=== PATIENT | male | born 1940 | race Caucasian/White ===

== ENCOUNTER 2018-01-23 06:57 | Outpatient (CLI) | payer OTHER ==
[~2018-01-23 06:57] MED LIST: AMOX1TAB12 PO; FLONASE16 GM NS; MEDROL4 MG PO
== END 2018-01-23 07:10 | disposition home or self-care (01) ==
LOC: LAB 06:57
DX: D51.0 Vitamin B12 deficiency anemia due to intrinsic factor deficiency (principal); D51.1 Vitamin B12 deficiency anemia due to selective vitamin B12 malabsorption with proteinuria; D51.3 Other dietary vitamin B12 deficiency anemia; D50.8 Other iron deficiency anemias; D51.8 Other vitamin B12 deficiency anemias; B96.81 Helicobacter pylori [H. pylori] as the cause of diseases classified elsewhere; K31.83 Achlorhydria; K29.40 Chronic atrophic gastritis without bleeding; K90.89 Other intestinal malabsorption; E06.3 Autoimmune thyroiditis; E03.8 Other specified hypothyroidism; E55.9 Vitamin D deficiency, unspecified; E78.5 Hyperlipidemia, unspecified; I10 Essential (primary) hypertension

== ENCOUNTER 2018-06-02 07:03 | Outpatient (CLI) | payer OTHER | END 2018-06-02 07:17 | disposition home or self-care (01) | LOC: LAB 07:03 | DX: D51.0 Vitamin B12 deficiency anemia due to intrinsic factor deficiency (principal); E03.8 Other specified hypothyroidism; K90.89 Other intestinal malabsorption; E55.9 Vitamin D deficiency, unspecified; D51.1 Vitamin B12 deficiency anemia due to selective vitamin B12 malabsorption with proteinuria; D51.3 Other dietary vitamin B12 deficiency anemia; B96.81 Helicobacter pylori [H. pylori] as the cause of diseases classified elsewhere; K31.83 Achlorhydria; E06.3 Autoimmune thyroiditis; K29.40 Chronic atrophic gastritis without bleeding; I10 Essential (primary) hypertension; E78.4 Other hyperlipidemia; D50.8 Other iron deficiency anemias; D51.8 Other vitamin B12 deficiency anemias; C90.00 Multiple myeloma not having achieved remission; D47.2 Monoclonal gammopathy ==

== ENCOUNTER 2019-01-25 07:05 | Outpatient (CLI) | payer OTHER | END 2019-01-25 07:10 | disposition home or self-care (01) | LOC: LAB 07:05 | DX: D51.0 Vitamin B12 deficiency anemia due to intrinsic factor deficiency (principal); D51.1 Vitamin B12 deficiency anemia due to selective vitamin B12 malabsorption with proteinuria; D51.3 Other dietary vitamin B12 deficiency anemia; B96.81 Helicobacter pylori [H. pylori] as the cause of diseases classified elsewhere; K31.83 Achlorhydria; E06.3 Autoimmune thyroiditis; E03.8 Other specified hypothyroidism; E55.9 Vitamin D deficiency, unspecified; K29.40 Chronic atrophic gastritis without bleeding; I10 Essential (primary) hypertension; E78.49 Other hyperlipidemia; K90.89 Other intestinal malabsorption; D50.8 Other iron deficiency anemias; D51.8 Other vitamin B12 deficiency anemias; R97.0 Elevated carcinoembryonic antigen [CEA]; R97.8 Other abnormal tumor markers ==

== ENCOUNTER 2019-07-31 07:38 | Outpatient (CLI) | payer OTHER | END 2019-07-31 15:42 | disposition home or self-care (01) | LOC: LAB 07:38 | DX: D50.8 Other iron deficiency anemias (principal); I10 Essential (primary) hypertension; D51.1 Vitamin B12 deficiency anemia due to selective vitamin B12 malabsorption with proteinuria; R97.0 Elevated carcinoembryonic antigen [CEA]; R97.20 Elevated prostate specific antigen [PSA]; K90.89 Other intestinal malabsorption; D64.89 Other specified anemias; N40.0 Benign prostatic hyperplasia without lower urinary tract symptoms; E78.2 Mixed hyperlipidemia ==

== ENCOUNTER 2019-11-17 14:51 | Emergency (ER) | payer OTHER ==
[~2019-11-17] VITALS: Ht 167.6 cm; Wt 68.9 kg
[2019-11-17] MEDS ORDERED: CARVEDILOL ER40 MG (15:58)
[2019-11-17] MEDS ORDERED: FENOFIBRATE150 MG (16:02)
[2019-11-17] MEDS ORDERED: LEVOTHYROXINE25 MCG (16:02)
[2019-11-17] MEDS ORDERED: ASPIR 8181 MG (16:02)
[2019-11-17] MEDS ORDERED: ACID REDUCER20 M1 (16:02)
[2019-11-17] MEDS ORDERED: COZAAR100 MG (16:02)
[2019-11-17] MEDS ORDERED: VITAMIN D2000 UNI1 (16:03)
[2019-11-17] MEDS ORDERED: NEURIN (16:04)
== END 2019-11-17 21:46 | disposition home or self-care (01) ==
LOC: ER 14:51
DX: J32.8 Other chronic sinusitis (principal)

== ENCOUNTER 2020-02-15 07:19 | Outpatient (CLI) | payer OTHER ==
[~2020-02-15 07:19] MED LIST changes: +ACID REDUCER20 M1; +ASPIR 8181 MG; +CARVEDILOL ER40 MG; +COZAAR100 MG; +FENOFIBRATE150 MG; +LEVOTHYROXINE25 MCG; +NEURIN; +VITAMIN D2000 UNI1
== END 2020-02-15 07:48 | disposition home or self-care (01) ==
LOC: LAB 07:19
DX: D51.0 Vitamin B12 deficiency anemia due to intrinsic factor deficiency (principal); D51.1 Vitamin B12 deficiency anemia due to selective vitamin B12 malabsorption with proteinuria; D51.3 Other dietary vitamin B12 deficiency anemia; B96.81 Helicobacter pylori [H. pylori] as the cause of diseases classified elsewhere; K31.83 Achlorhydria; E03.8 Other specified hypothyroidism; E06.3 Autoimmune thyroiditis; E55.9 Vitamin D deficiency, unspecified; K29.40 Chronic atrophic gastritis without bleeding; I10 Essential (primary) hypertension; K90.89 Other intestinal malabsorption; E78.2 Mixed hyperlipidemia; R97.0 Elevated carcinoembryonic antigen [CEA]

== ENCOUNTER 2020-09-12 10:00 | Day surgery (SDC) | payer OTHER | END 2020-09-12 19:00 | disposition home or self-care (01) | LOC: CIR.AMB 10:00 | PROVIDERS: ATTEND Orthopaedic Surgery Sports Medicine | DX: M75.121 Complete rotator cuff tear or rupture of right shoulder, not specified as traumatic (principal); M75.41 Impingement syndrome of right shoulder; M24.011 Loose body in right shoulder; Z20.828 Contact with and (suspected) exposure to other viral communicable diseases ==

== ENCOUNTER 2021-02-10 07:34 | Outpatient (CLI) | payer OTHER | END 2021-02-10 07:42 | disposition home or self-care (01) | LOC: LAB 07:34 | PROVIDERS: ATTEND Internal Medicine Hematology & Oncology | DX: I10 Essential (primary) hypertension (principal); E03.8 Other specified hypothyroidism; Z12.11 Encounter for screening for malignant neoplasm of colon; N40.0 Benign prostatic hyperplasia without lower urinary tract symptoms; E78.2 Mixed hyperlipidemia; R74.02 Elevation of levels of lactic acid dehydrogenase [LDH]; K76.89 Other specified diseases of liver; D50.8 Other iron deficiency anemias; D51.8 Other vitamin B12 deficiency anemias; R97.0 Elevated carcinoembryonic antigen [CEA]; R97.8 Other abnormal tumor markers; K90.89 Other intestinal malabsorption; K29.40 Chronic atrophic gastritis without bleeding; B96.81 Helicobacter pylori [H. pylori] as the cause of diseases classified elsewhere; K31.83 Achlorhydria ==

== ENCOUNTER 2021-06-05 07:33 | Outpatient (CLI) | payer OTHER | END 2021-06-05 07:35 | disposition home or self-care (01) | LOC: NUCLEAR 07:33 | PROVIDERS: ATTEND Internal Medicine Cardiovascular Disease | DX: R07.89 Other chest pain (principal); I50.1 Left ventricular failure, unspecified | CPT/HCPCS: 78452; 93017; A9500; J0153 ==

== ENCOUNTER 2022-06-24 07:22 | Outpatient (CLI) | payer OTHER | END 2022-06-24 07:27 | disposition home or self-care (01) | LOC: LAB 07:22 | PROVIDERS: ATTEND Internal Medicine Hematology & Oncology | DX: D51.0 Vitamin B12 deficiency anemia due to intrinsic factor deficiency (principal); D50.8 Other iron deficiency anemias; I10 Essential (primary) hypertension; R74.02 Elevation of levels of lactic acid dehydrogenase [LDH]; K76.89 Other specified diseases of liver; D51.8 Other vitamin B12 deficiency anemias; D51.1 Vitamin B12 deficiency anemia due to selective vitamin B12 malabsorption with proteinuria; E03.8 Other specified hypothyroidism; E55.9 Vitamin D deficiency, unspecified; B96.81 Helicobacter pylori [H. pylori] as the cause of diseases classified elsewhere; K31.83 Achlorhydria; E06.3 Autoimmune thyroiditis; K29.40 Chronic atrophic gastritis without bleeding; E78.5 Hyperlipidemia, unspecified; K90.89 Other intestinal malabsorption ==

== ENCOUNTER 2023-10-24 06:31 | Outpatient (CLI) | payer OTHER ==
[2023-10-24 07:55] LABS: HEMATOCRIT 36.2 % (39.0-48.0); HEMOGLOBIN 12.6 g/dL (13-16.00); MEAN CELL VOLUME 92.4 fL (80.0-100.00); MEAN CORPUSCULAR HEMOGLOBIN 32.1 pg (27.00-32.0); MEAN CORPUSCULAR HGB CONC 34.7 g/dl (32.0-36.0); PLATELET COUNT 239 K/uL (150-450); RED BLOOD COUNT 3.92 M/uL (4.00-6.00); RED CELL DISTRIBUTION WIDTH 13.3 % (11.5-14.5)
[2023-10-24 08:01] LABS: PH,URINE 7.5 (5.0-8.0); URINE APPEARANCE Clear; URINE BILIRRUBIN Negative (NEGATIVE); URINE BLOOD Negative; URINE COLOR Yellow; URINE GLUCOSE Negative (NEGATIVE); URINE LEUKOCYTE Negative; URINE NITRATE Negative; URINE PROTEIN Negative (NEGATIVE)
[2023-10-24 08:02] LABS: URINE BACTERIA 6.2 uL (0.0-1933); URINE RBC 4.8 uL (0.0-20.8)
[2023-10-24 08:58] LABS: ALBUMIN 3.6 gm/dL (3.4-5.0); BILIRUBIN TOTAL 0.71 mg/dL (0.3-1.2); BILIRUBIN,CONJUGATED 0.22 mg/dL (0.0-0.2); BILIRUBIN,UNCONJUGATED 0.49 mg/dL (0.0-0.6); CALCIUM 9.1 mg/dL (8.5-10.1); CREATININE SERUM 0.84 mg/dL (0.70-1.30); GFR 87.27; GLOBULINA 3.3 G/DL (2.4-3.5); POTASSIUM 4.09 mEq/L (3.5-5.1); PROSTATIC SPECIFIC ANTIGEN 1.45 NG/ML (0.010-4.00); T4 FREE 0.96 NG/ML (0.76-1.46); TOTAL PROTEIN 6.9 gm/dL (6.4-8.2); TSH 2.46 uIU/mL (0.358-3.74)
[2023-10-24 09:43] LABS: URINE EPITHELIAL CELLS 0.7 uL (0.0-38.8); URINE WBC 1.3 uL (0.0-23.2)
[2023-10-24 09:49] LABS: FOLIC ACID > 20.00 ng/ml (4.78-20); VITAMIN D3 25 HYDROXY 44.08 ng/ml (30-120)
== END 2023-10-24 06:32 | disposition home or self-care (01) ==
LOC: LAB 06:31
PROVIDERS: ATTEND Internal Medicine Hematology & Oncology
DX: D50.8 Other iron deficiency anemias (principal); R74.02 Elevation of levels of lactic acid dehydrogenase [LDH]; K76.89 Other specified diseases of liver; D51.8 Other vitamin B12 deficiency anemias; E55.9 Vitamin D deficiency, unspecified; E03.8 Other specified hypothyroidism; R97.0 Elevated carcinoembryonic antigen [CEA]; R97.8 Other abnormal tumor markers; R97.20 Elevated prostate specific antigen [PSA]; D51.0 Vitamin B12 deficiency anemia due to intrinsic factor deficiency; D51.1 Vitamin B12 deficiency anemia due to selective vitamin B12 malabsorption with proteinuria; B96.81 Helicobacter pylori [H. pylori] as the cause of diseases classified elsewhere; K31.83 Achlorhydria; E06.3 Autoimmune thyroiditis; K29.40 Chronic atrophic gastritis without bleeding; K90.89 Other intestinal malabsorption; N40.0 Benign prostatic hyperplasia without lower urinary tract symptoms; I11.9 Hypertensive heart disease without heart failure; E03.9 Hypothyroidism, unspecified; E78.00 Pure hypercholesterolemia, unspecified; Z12.11 Encounter for screening for malignant neoplasm of colon